=== PATIENT | female | born 1980 | race Caucasian/White ===

== ENCOUNTER 2018-09-14 08:00 | Outpatient (CLI) | payer MEDICAID | END 2018-09-14 09:00 | disposition home or self-care (01) | LOC: D.MAMMO 08:00 → D.US 08:00 → D.MAMMO 08:30 | DX: N63.11 Unspecified lump in the right breast, upper outer quadrant (principal) ==

== ENCOUNTER 2020-11-12 09:30 | Outpatient (CLI) | payer MEDICAID | END 2020-11-12 23:59 | disposition home or self-care (01) | LOC: D.MAMMO 09:30 | PROVIDERS: ATTEND Obstetrics & Gynecology Maternal & Fetal Medicine | DX: N64.52 Nipple discharge (principal); N94.6 Dysmenorrhea, unspecified ==

== ENCOUNTER 2020-12-02 05:10 | Day surgery (SDC) | payer MEDICAID ==
[~2020-12-02] VITALS: Ht 170.2 cm; Wt 79.4 kg
[2020-12-02 05:36] LABS: HEMATOCRIT 45.3 % (36.0-48.0); HEMOGLOBIN 15.8 g/dL (12-16); MCH 30.9 pg (26.0-34.0); MCHC 34.9 g/dL (31.0-37.0); MCV 88.5 fL (80.0-100.0); RBC 5.12 10x6/uL (4.00-5.40); RDW 12.7 % (11.5-14.5); WBC 9.2 10x3/uL (4.8-10.8)
[2020-12-02 05:41] LABS: HCG SERUM NEGATIVE (NEGATIVE)
[2020-12-02 06:46] VITALS: BP 101/57; Ht 170.2 cm; Wt 79.4 kg
== END 2020-12-02 12:45 | disposition home or self-care (01) ==
LOC: D.OPS 05:10
PROVIDERS: Anesthesiology; ATTEND Obstetrics & Gynecology Maternal & Fetal Medicine
DX: N93.9 Abnormal uterine and vaginal bleeding, unspecified (principal); R10.2 Pelvic and perineal pain; N94.6 Dysmenorrhea, unspecified